=== PATIENT | female | born 1980 | race Caucasian/White ===

== ENCOUNTER 2018-10-29 08:25 | Emergency (ER) | payer BC ==
[2018-10-29 08:47] VITALS: BP 114/88
--- NOTE | 2018-10-29 09:00 | UC ---
Skin Complaint HPI - HPI Summary HPI Summary: rash left upper back x 4 days the rash is just below the shoulder blade , + redness, warm and tender to touch , no fever, no chills - History of Current Complaint Chief Complaint: [employer] Time Seen by Provider: 10/29/18 08:38 Stated Complaint: SKIN CONCERN (INSECT BITE) Hx Obtained From: Patient Hx Last Menstrual Period: 08/2013 Onset/Duration: Gradual Onset, Lasting Days - 4, Still Present Timing: Constant Onset Severity: Moderate Current Severity: Moderate Pain Intensity: 0 Location: Discrete - left upper back Character: Swelling, Pruritus, Redness, Painful Aggravating Factor(s): Touch Alleviating Factor(s): Nothing Associated Signs & Symptoms: Positive: Rash, Tenderness. Negative: Nausea, Vomiting, Numbness, Weakness - Allergy/Home Medications Allergies/Adverse Reactions: Allergies Allergy/AdvReac Type Severity Reaction Status Date / Time No Known Allergies Allergy Verified 10/29/18 08:38 Home Medications: Home Medications Estradiol 0.025 MG PATCH (NF) 1 patch TRANSDERM WEEKLY 10/29/18 [History Confirmed 10/29/18] diphenhydrAMINE HCl [Benadryl Allergy 25 MG CAP] 25 mg PO ONCE PRN 10/29/18 [ History Confirmed 10/29/18] medroxyPROGESTERone TAB* [Provera TAB*] 2.5 mg PO SEE INSTRUCTIONS 10/29/18 [ History Confirmed 10/29/18] PMH/Surg Hx/FS Hx/Imm Hx Previously Healthy: Yes - Surgical History Surgical History: Yes Surgery Procedure, Year, and Place: double mastectomy. oophorectomy - Family History Known Family History: Negative: Diabetes - Social History Alcohol Use: Occasionally Substance Use Type: None Smoking Status (MU): Never Smoked Tobacco Review of Systems All Other Systems Reviewed And Are Negative: Yes Constitutional: Positive: Negative Skin: Positive: Rash Eyes: Positive: Negative ENT: Positive: Negative Respiratory: Positive: Negative Cardiovascular: Positive: Negative Is Patient Immunocompromised?: No Physical Exam Triage Information Reviewed: Yes Appearance: Well-Appearing, No Pain Distress, Well-Nourished Vital Signs: Initial Vital Signs Temp 98.6 F 10/29/18 08:41 Pulse 92 10/29/18 08:41 Resp 16 10/29/18 08:41 BP 114/88 10/29/18 08:41 Pulse Ox 100 10/29/18 08:41 Vital Signs Reviewed: Yes Eye Exam: Normal Eyes: Positive: Conjunctiva Clear ENT: Positive: Normal ENT inspection, Hearing grossly normal, Pharynx normal Neck: Positive: Supple, Nontender, No Lymphadenopathy Respiratory: Positive: Chest non-tender, Lungs clear, Normal breath sounds Cardiovascular: Positive: RRR, No Murmur, Pulses Normal Abdominal Exam: Normal Abdomen Description: Positive: Nontender, Soft Bowel Sounds: Positive: Present Skin: Positive: Rashes - Macular rash left upper back , + erythema, warm to touch , tender c/w cellulitis Course/Dx - Diagnoses Provider Diagnosis: Cellulitis of back Discharge - Sign-Out/Discharge Documenting (check all that apply): Patient Departure All imaging exams completed and their final reports reviewed: No Studies - Discharge Plan Condition: Stable Disposition: HOME Prescriptions: Cephalexin CAP* [Keflex CAP*] 500 mg PO TID #30 cap predniSONE TAB* [Deltasone 20 MG TAB*] 40 mg PO DAILY #10 tab Patient Education Materials: Cellulitis (ED) Referrals: No Primary Care Phys,NOPCP [Primary Care Provider] - 7 Days - Billing Disposition and Condition Condition: STABLE Disposition: Home
== END 2018-10-29 09:02 | disposition home or self-care (01) ==
LOC: UCCORT 08:25
DX: L03.312 Cellulitis of back [any part except buttock and flank] (principal)
CPT/HCPCS: 99202; G0463